=== PATIENT | female | born 1965 | race Caucasian/White ===

== ENCOUNTER 2020-01-25 20:06 | Emergency (ER) | payer MEDICAID ==
[~2020-01-25] VITALS: Ht 152.4 cm; Wt 72.8 kg
[~2020-01-25 20:06] MED LIST: NOCURR
[2020-01-25] MEDS ORDERED: PENICILLIN INJ (20:21)
[2020-01-26] MEDS ORDERED: DEXAMETHASONE 4 MG TABLET PO ONE
[2020-01-26 00:31] LABS: COVID AG,FIA SOURCE NASAL SWAB
[2020-01-26 01:43] VITALS: BP 158/70
== END 2020-01-26 01:45 | disposition home or self-care (01) ==
LOC: EMS 20:06
DX: J02.9 Acute pharyngitis, unspecified (principal); Z20.828 Contact with and (suspected) exposure to other viral communicable diseases
CPT/HCPCS: 87426; 99285; J8540

== ENCOUNTER 2024-11-20 20:05 | Emergency (ER) | payer MEDICAID ==
[~2024-11-20] VITALS: Ht 152.4 cm; Wt 94.5 kg
[~2024-11-20 20:05] MED LIST changes: -NOCURR; +PENICILLIN INJ
[2024-11-20] MEDS: ACETAMINOPHEN 500 MG TABLET PO ONE (21:24)
[2024-11-20] MEDS: IBUPROFEN 400 MG TABLET PO ONE (21:24)
[2024-11-20 21:37] VITALS: BP 141/88; PULSE 75; RESP 16; TEMP 98.3; O2SAT 98
== END 2024-11-20 21:37 | disposition still patient (30) ==
LOC: EMS 20:15
DX: J02.8 Acute pharyngitis due to other specified organisms (principal); B97.89 Other viral agents as the cause of diseases classified elsewhere; Z98.890 Other specified postprocedural states; Z79.899 Other long term (current) drug therapy
CPT/HCPCS: 99284; 87430; J8540; Z7502; Z7610